=== PATIENT | female | born 1945 | race American Indian/Alaskan Native ===

== ENCOUNTER 2017-03-30 18:40 | Emergency (ER) | payer MEDICARE ==
[2017-03-30 19:49] LABS: Basophils % (Auto) 0.9 % (0.0-1.8); Hematocrit 37.2 % (30.3-42.9); Hemoglobin 12.5 gm/dl (10.1-14.3); Mean Corpuscular HGB Conc 34 % (30-34); Mean Corpuscular Hemoglobin 30 pg (28-32); Mean Corpuscular Volume 89 fl (79-97); Platelet Count 422 K/mm3 (140-440); Red Blood Count 4.18 M/mm3 (3.65-5.03); Red Cell Distribution Width 13.8 % (13.2-15.2); White Blood Count 7.8 K/mm3 (4.5-11.0)
[2017-03-30 19:59] LABS: INR 0.9 (0.87-1.13)
[2017-03-30 20:06] LABS: Anion Gap 16 mmol/L; BUN/Creatinine Ratio 18.33; Blood Urea Nitrogen 11 mg/dL (7-17); Calcium 9.2 mg/dL (8.4-10.2); Carbon Dioxide 26 mmol/L (22-30); Chloride 103.7 mmol/L (98-107); Glucose 129 mg/dL (65-100); Potassium 3.7 mmol/L (3.6-5.0); Sodium 142 mmol/L (137-145)
[2017-03-30] MEDS ORDERED: TYLENOL PO ONE (20:40)
[2017-03-31] MEDS ORDERED: TORADOL IM ONE (02:48)
--- NOTE | 2017-03-31 02:49 | Emergency Department Report ---
HPI - General Chief Complaint: Extremity Injury, Lower Time Seen by Provider: 03/31/17 02:45 - HPI HPI: Patient complains of right knee pain. Status post fall 2 days ago, and is accompanied by swelling, no redness. ED Past Medical Hx - Past Medical History Previous Medical History?: Yes Hx Hypertension: Yes - Surgical History Past Surgical History?: Yes Hx Appendectomy: Yes Additional Surgical History: hysterectomy gallstones - Social History Smoking Status: Never Smoker Substance Use Type: None - Medications Home Medications: Home Medications Medication Instructions Recorded Confirmed Last Taken Type Fluticasone [Flonase] 1 spray NS QDAY #1 bottle 07/09/15 03/31/17 Unknown Rx Promethazine Dm [Phenergan DM 5 ml PO Q6H PRN #120 ml 07/09/15 03/31/17 Unknown Rx 6.25-15 mg/5 ml] Benadryl GEL 25 mg PO DAILY 03/31/17 03/31/17 Unknown History amLODIPine [Norvasc] 10 mg PO DAILY 03/31/17 03/31/17 Unknown History ED Review of Systems ROS: Stated complaint: ABN SWOLLEN RT KNEE/LEG/FOOT PAIN Other details as noted in HPI Comment: All other systems reviewed and negative Musculoskeletal: joint swelling Physical Exam - Physical Exam Vital Signs: Vital Signs 03/30/17 03/31/17 03/31/17 19:26 00:01 00:06 Temperature 98.9 F Pulse Rate 72 61 67 Respiratory 16 11 L 13 Rate Blood Pressure 141/75 124/68 O2 Sat by Pulse 99 100 100 Oximetry 03/31/17 03/31/17 03/31/17 00:11 00:20 00:40 Temperature Pulse Rate 64 84 Respiratory 17 22 13 Rate Blood Pressure 116/62 117/69 O2 Sat by Pulse 99 98 Oximetry 03/31/17 03/31/17 03/31/17 01:00 01:20 01:40 Temperature Pulse Rate 80 80 Respiratory 12 19 17 Rate Blood Pressure 113/72 109/68 109/68 O2 Sat by Pulse 99 98 Oximetry 03/31/17 02:00 Temperature Pulse Rate 81 Respiratory 21 Rate Blood Pressure 122/64 O2 Sat by Pulse 99 Oximetry Physical Exam: Gen. alert and oriented 3 in no distress Head atraumatic normocephalic Eyes PERR LA EOMI Chest regular rate and rhythm normal S1-S2 lungs clear bilaterally Abdomen soft nondistended Back no point tenderness paravertebral tenderness Neuro no focal deficit. Psych normal mood. Extremities: Right knee tenderness, swelling. ED Course Vital Signs 03/30/17 03/31/17 03/31/17 19:26 00:01 00:06 Temperature 98.9 F Pulse Rate 72 61 67 Respiratory 16 11 L 13 Rate Blood Pressure 141/75 124/68 O2 Sat by Pulse 99 100 100 Oximetry 03/31/17 03/31/17 03/31/17 00:11 00:20 00:40 Temperature Pulse Rate 64 84 Respiratory 17 22 13 Rate Blood Pressure 116/62 117/69 O2 Sat by Pulse 99 98 Oximetry 03/31/17 03/31/17 03/31/17 01:00 01:20 01:40 Temperature Pulse Rate 80 80 Respiratory 12 19 17 Rate Blood Pressure 113/72 109/68 109/68 O2 Sat by Pulse 99 98 Oximetry 03/31/17 02:00 Temperature Pulse Rate 81 Respiratory 21 Rate Blood Pressure 122/64 O2 Sat by Pulse 99 Oximetry ED Medical Decision Making - Lab Data Result diagrams: 03/30/17 19:37 03/30/17 19:37 Critical care attestation.: If time is entered above; I have spent that time in minutes in the direct care of this critically ill patient, excluding procedure time. ED Disposition Clinical Impression: Right knee pain Disposition: -01 TO HOME OR SELFCARE Is pt being admited?: No Does the pt Need Aspirin: No Condition: Stable Referrals: PRIMARY CARE, [Primary Care Provider] - 3-5 Days
[2017-03-31] MEDS ORDERED: NORCO 10/325 PO ONE (03:13)
[2017-03-31 04:11] VITALS: BP 108/55
--- NOTE | 2017-03-31 09:29 | XRay Report ---
Right knee 3 views: History: Pain. Findings: Fluid in the suprapatellar bursae. Large spur at the anterosuperior patella. No fracture or dislocation. Normal articular surfaces. Early degenerative changes cannot be excluded. Impression: Findings as detailed above.
== END 2017-03-31 04:09 | disposition home or self-care (01) ==
LOC: ED 18:40
DX: M25.561 Pain in right knee (principal); I10 Essential (primary) hypertension; W19.XXXA Unspecified fall, initial encounter; Y93.89 Activity, other specified; Y99.9 Unspecified external cause status; Y92.89 Other specified places as the place of occurrence of the external cause
CPT/HCPCS: 36415; 73562; 80048; 85025; 85610; 96372; 99284; J1885

== ENCOUNTER 2017-03-31 13:56 | Outpatient (CLI) | payer MEDICARE ==
--- NOTE | 2017-04-01 07:43 | Vascular Lab Report ---
Right Lower Extremity Venous Duplex Study: Reason for Exam: Pain of the right lower extremity. Comments on the Right: All veins visualized are freely compressible without evidence of internal echogenicity. Flow is spontaneous and phasic throughout. No evidence of acute or chronic thrombus is seen in any of the vessels visualized. Comments on the Left: A limited duplex study was done of the proximal veins of the left lower extremity. All veins visualized are freely compressible without evidence of internal echogenicity. Flow is spontaneous and phasic throughout. No evidence of acute or chronic thrombus is seen in any of the vessels visualized. Impression: No evidence of acute or chronic deep venous thrombosis in the right lower extremity.
== END 2017-03-31 13:57 | disposition home or self-care (01) ==
LOC: VAS 13:56
PROVIDERS: ATTEND Family Medicine
DX: M79.661 Pain in right lower leg (principal); I10 Essential (primary) hypertension